=== PATIENT | female | born 1955 | race Caucasian/White ===

== ENCOUNTER 2018-12-14 13:34 | Emergency (ER) | payer OTHER ==
[2018-12-14 14:03] VITALS: BP 142/63
--- NOTE | 2018-12-14 15:06 | UC ---
Lower Extremity/Ankle HPI - HPI Summary HPI Summary: The patient is a 63-year-old female that slipped on ice and struck her left arevalo on some steps. This occurred about 4 days ago. She complains of arevalo pain as well as swelling and bruising around her ankle. Her ankle is not painful. - History of Current Complaint Chief Complaint: UCGeneralIllness Stated Complaint: LEG INJURY S/P FALL Time Seen by Provider: 12/14/18 14:23 Hx Obtained From: Patient Onset/Duration: Sudden Onset Severity Initially: Moderate Severity Currently: Moderate Pain Intensity: 6 Pain Scale Used: 0-10 Numeric Aggravating Factor(s): Standing, Ambulation Alleviating Factor(s): Rest, Elevation Able to Bear Weight: Yes Legs: 1 - tender/swollen 2 - swollen/ecchymotic - Allergies/Home Medications Allergies/Adverse Reactions: Allergies Allergy/AdvReac Type Severity Reaction Status Date / Time No Known Allergies Allergy Verified 12/14/18 13:52 Home Medications: Home Medications Aspirin EC TAB* [Ecotrin EC Low Dose 81 MG*] 1 tab BID WITH MEALS 12/14/18 [ History Confirmed 12/14/18] Atorvastatin* [Lipitor 80 MG*] 1 tab DAILY 12/14/18 [History Confirmed 12/14/18] Clopidogrel TAB* [Plavix TAB*] 1 tab DAILY 12/14/18 [History Confirmed 12/14/18] Escitalopram Oxalate [Lexapro 20 mg] 1 tab DAILY 12/14/18 [History Confirmed ] Famotidine TAB* [Pepcid 20 MG TAB*] 40 tab DAILY PRN 12/14/18 [History Confirmed 12/14/18] Metoprolol Tartrate TAB* [Lopressor TAB*] 1 tab DAILY 12/14/18 [History Confirmed 12/14/18] PMH/Surg Hx/FS Hx/Imm Hx Previously Healthy: Yes Endocrine History: Dyslipidemia Cardiovascular History: Cardiac Disease, Hypertension - Surgical History Surgical History: Yes Surgery Procedure, Year, and Place: TUBAL. left coronary stent 02/22/18 - Family History Known Family History: Positive: Hypertension, Other - [place] -father - Social History Alcohol Use: None Substance Use Type: None Smoking Status (MU): Former Smoker Type: Cigarettes Amount Used/How Often: 1/2 PK DAILY Have You Smoked in the Last Year: Yes When Did the Patient Quit Smoking/Using Tobacco: JUL 2018 Household Exposure Type: Cigarettes Review of Systems All Other Systems Reviewed And Are Negative: Yes Constitutional: Positive: Negative Skin: Positive: Bruising Eyes: Positive: Negative ENT: Positive: Negative Respiratory: Positive: Negative Cardiovascular: Positive: Negative Gastrointestinal: Positive: Negative Genitourinary: Positive: Negative Motor: Positive: Negative Neurovascular: Positive: Negative Musculoskeletal: Positive: Negative Neurological: Positive: Negative Psychological: Positive: Negative Physical Exam Triage Information Reviewed: Yes Appearance: Well-Appearing, No Pain Distress, Well-Nourished Vital Signs: Initial Vital Signs Temp 97.5 F 12/14/18 13:56 Pulse 71 12/14/18 13:56 Resp 16 12/14/18 13:56 BP 142/63 12/14/18 13:56 Pulse Ox 99 12/14/18 13:56 Vital Signs Reviewed: Yes Eyes: Positive: Conjunctiva Clear ENT: Positive: Hearing grossly normal. Negative: Nasal congestion, Nasal drainage, Trismus, Muffled voice, Hoarse voice Neck: Positive: Supple, Nontender, No Lymphadenopathy Respiratory: Positive: Lungs clear, Normal breath sounds, No respiratory distress, No accessory muscle use Cardiovascular: Positive: RRR Musculoskeletal: Positive: ROM Intact, Edema @ - anterior to left arevalo. Negative: ROM Limited @ Neurological: Positive: Alert Psychological Exam: Normal Skin Exam: Normal Lower Extremity Course/Dx - Differential Dx/Diagnosis Differential Diagnosis/HQI/PQRI: Other - Left arevalo contusion Provider Diagnosis: Contusion Discharge - Sign-Out/Discharge Documenting (check all that apply): Patient Departure All imaging exams completed and their final reports reviewed: No Studies - Discharge Plan Condition: Stable Disposition: HOME Patient Education Materials: Hematoma (ED) Referrals: Juan Miguel Ramsay MD [Primary Care Provider] - 2 Weeks (if not better) Additional Instructions: XR normal elevate ice at least twice daily tylenol - Billing Disposition and Condition Condition: STABLE Disposition: Home
== END 2018-12-14 15:14 | disposition home or self-care (01) ==
LOC: UCCORT 13:34
DX: S80.12XA Contusion of left lower leg, initial encounter (principal); I10 Essential (primary) hypertension; Z79.899 Other long term (current) drug therapy; Z87.891 Personal history of nicotine dependence; W00.0XXA Fall on same level due to ice and snow, initial encounter; Y92.9 Unspecified place or not applicable
CPT/HCPCS: 99211; G0463

== ENCOUNTER 2019-06-01 14:14 | Emergency (ER) | payer OTHER ==
[2019-06-01 14:35] VITALS: BP 123/74
--- NOTE | 2019-06-01 14:48 | UC ---
Lower Extremity/Ankle HPI - HPI Summary HPI Summary: Pt c/o sudden onset of right dorsal foot pain, swelling and mild erythema at base of toes 3-5 X 3 days. Pt denies injury or overuse. - History of Current Complaint Chief Complaint: UCLowerExtremity Stated Complaint: R FOOT SWELLING Time Seen by Provider: 06/01/19 14:39 Hx Obtained From: Patient ?: No Onset/Duration: Sudden Onset, Lasting Days Severity Initially: Mild Severity Currently: Moderate Pain Intensity: 6 Aggravating Factor(s): Standing, Ambulation Alleviating Factor(s): Nothing Able to Bear Weight: Yes - Risk Factors Gout Risk Factors: Age Over 40, Obesity DVT Risk Factors: Negative Septic Arthritis Risk Factor: Negative - Allergies/Home Medications Allergies/Adverse Reactions: Allergies Allergy/AdvReac Type Severity Reaction Status Date / Time No Known Allergies Allergy Verified 06/01/19 14:30 Home Medications: Home Medications traZODone TAB* [Desyrel TAB*] 25 - 100 mg PO BEDTIME PRN 06/01/19 [History Confirmed 06/01/19] PMH/Surg Hx/FS Hx/Imm Hx Previously Healthy: Yes Endocrine History: Dyslipidemia Cardiovascular History: Hypertension - Surgical History Surgical History: Yes Surgery Procedure, Year, and Place: Cardiac Stent, 2018; Tubal Ligation - Family History Known Family History: Positive: Hypertension, Other - [place] -father - Social History Occupation: Retired Lives: With Family Alcohol Use: None Substance Use Type: None Smoking Status (MU): Former Smoker Type: Cigarettes Amount Used/How Often: 1/2 PPD Have You Smoked in the Last Year: Yes When Did the Patient Quit Smoking/Using Tobacco: 09/2018 Household Exposure Type: Cigarettes Review of Systems All Other Systems Reviewed And Are Negative: Yes Constitutional: Positive: Negative Skin: Positive: Other - mild erythema Eyes: Positive: Negative ENT: Positive: Negative Respiratory: Positive: Negative Cardiovascular: Positive: Negative Gastrointestinal: Positive: Negative Genitourinary: Positive: Negative Motor: Positive: Other - pain and mild swelling distal right foot Neurovascular: Positive: Negative Musculoskeletal: Positive: Decreased ROM, Edema, Myalgia Neurological: Positive: Negative Psychological: Positive: Negative Is Patient Immunocompromised?: No Physical Exam Triage Information Reviewed: Yes Appearance: Well-Appearing Vital Signs: Initial Vital Signs Temp 98.3 F 06/01/19 14:28 Pulse 74 06/01/19 14:28 Resp 18 06/01/19 14:28 BP 123/74 06/01/19 14:28 Pulse Ox 100 06/01/19 14:28 Vital Signs Reviewed: Yes Eye Exam: Normal ENT Exam: Normal Dental Exam: Normal Neck exam: Normal Respiratory Exam: Normal Respiratory: Positive: No respiratory distress Musculoskeletal: Positive: Edema @ - mild edema, distal right foot dorsal aspect at base of toes 3-5. Neurological Exam: Normal Psychological Exam: Normal Skin Exam: Other - mi.d erythema right foot, base of toes 3-5 Lower Extremity Course/Dx - Differential Dx/Diagnosis Differential Diagnosis/HQI/PQRI: Cellulitis, Gout Provider Diagnosis: Gout Discharge - Sign-Out/Discharge Documenting (check all that apply): Patient Departure All imaging exams completed and their final reports reviewed: No Studies - Discharge Plan Condition: Stable Disposition: HOME Prescriptions: Colchicine* [Colcrys*] 0.6 mg PO ONCE #3 tab Patient Education Materials: Low Purine Diet (ED), Gout (ED) Referrals: Juan Miguel Ramsay MD [Primary Care Provider] - If Needed - Billing Disposition and Condition Condition: STABLE Disposition: Home
== END 2019-06-01 15:04 | disposition home or self-care (01) ==
LOC: UCCORT 14:14
DX: M10.9 Gout, unspecified (principal); I10 Essential (primary) hypertension; Z87.891 Personal history of nicotine dependence
CPT/HCPCS: 99212; G0463